=== PATIENT | female | born 1965 ===

== ENCOUNTER → 2023-01-18 | Outpatient (CLI) | payer BC ==
[2023-01-18 15:32] LABS: CHOL/HDL RATIO 4.4; Cholesterol 254 mg/dL (50-200); HDL Cholesterol 58 mg/dL (>39); LDL/HDL RATIO 2.3; Low Density Lipoprotein Chol 134 mg/dL (0-110); Triglycerides 308 mg/dL (30-160); Very Low Density Lipoprot Chol 61 mg/dL (6-32)
== END | disposition home or self-care (01) ==
LOC: LAB 13:25 → LAB SHORT 13:25
PROVIDERS: Family Medicine
DX: E78.2 Mixed hyperlipidemia (principal)
CPT/HCPCS: 80061